=== PATIENT | female | born 1965 | race Caucasian/White ===

== ENCOUNTER 2017-08-17 23:12 | Emergency (ER) | payer OTHER ==
[~2017-08-17] VITALS: Ht 167.6 cm; Wt 100.7 kg
[~2017-08-17 23:12] MED LIST: LORTAB 5-325 M1 EACH PO; MOTRIN800 MG PO
[2017-08-18 00:06] LABS: APPEARANCE SL.HAZY ((CLEAR)); BILIRUBIN NEGATIVE; BLOOD LARGE; COLOR YELLOW ((YELLOW)); GLUCOSE (STRIP) NEGATIVE; KETONES NEGATIVE; LEUKOCYTES NEGATIVE; NITRITE NEGATIVE; PROTEIN (STRIP) 30; SPECIFIC GRAVITY 1.021 (1.000-1.030)
[2017-08-18 00:09] LABS: HEMATOCRIT 45.9 % (36.0-46.0); HEMOGLOBIN 15.3 G/DL (11.9-15.5); MCH 28.5 PG (29.0-34.0); MCHC 33.3 G/DL (30.0-36.0); MCV 85.6 FL (83-99); PLATELET COUNT 323 K/uL (156-360); RBC DIS.WIDTH-CV 13.1 % (11.8-14.6); RBC DIS.WIDTH-SD 40.2 % (39-53); RED BLOOD COUNT 5.36 M/uL (3.80-5.20); WHITE BLOOD COUNT 10.4 K/uL (4.1-10.2)
[2017-08-18 00:10] LABS: BACTERIA RARE /HPF; EPITHELIAL CELLS 2+ /HPF; HYALINE CASTS 0-5 /LPF; MUCUS 2+ /LPF; RED BLOOD CELLS TNTC /HPF (0-5); UCUL ADDED? YES; WHITE BLOOD CELLS 0-5 /HPF (0-5)
[2017-08-18 00:20] LABS: CHLORIDE 106 mEq/L (99-109); POTASSIUM 3.8 mEq/L (3.7-5.4); SODIUM 140 mEq/L (136-147)
[2017-08-18 00:22] LABS: GLUCOSE 122 mg/dL (70-99)
[2017-08-18 00:26] LABS: GFR ESTIMATE (CALCULATED) > 59 mL/min/
[2017-08-18 00:27] LABS: UREA NITROGEN (BUN) 17 mg/dL (9-23)
[2017-08-18] MEDS ORDERED: MOTRIN600 MG PO (05:35)
[2017-08-18 05:42] VITALS: BP 155/76
== END 2017-08-18 05:53 | disposition home or self-care (01) ==
LOC: EME 23:12
DX: N13.2 Hydronephrosis with renal and ureteral calculous obstruction (principal); Z88.0 Allergy status to penicillin
CPT/HCPCS: 74176; 80048; 81003; 85027; 87086; 99281; 99284

== ENCOUNTER 2017-11-20 03:26 | Emergency (ER) | payer SELFPAY ==
[~2017-11-20] VITALS: Ht 162.6 cm; Wt 101.0 kg
[~2017-11-20 03:26] MED LIST changes: +MOTRIN600 MG PO
[2017-11-20 04:32] LABS: BASOPHIL (%) 0.3 % (0-1); EOSINOPHIL (%) 3.3 % (0-5); EOSINOPHIL COUNT 0.2 K/uL (0-0.3); HEMATOCRIT 43.9 % (36.0-46.0); HEMOGLOBIN 14.9 G/DL (11.9-15.5); IMMATURE GRANULOCYTE (%) 0.3 % (0.0-0.7); LYMPHOCYTE (%) 29.3 % (15-42); LYMPHOCYTE COUNT 2.1 K/uL (1.0-2.8); MCH 28.9 PG (29.0-34.0); MCHC 33.9 G/DL (30.0-36.0); MCV 85.2 FL (83-99); MONOCYTE (%) 7.5 % (3-12); MONOCYTE COUNT 0.6 K/uL (0-0.8); NEUTROPHIL (%) 59.3 % (45-76); NEUTROPHIL COUNT 4.3 K/uL (1.8-6.4); PLATELET COUNT 255 K/uL (156-360); RBC DIS.WIDTH-CV 13.2 % (11.8-14.6); RBC DIS.WIDTH-SD 41.2 % (39-53); RED BLOOD COUNT 5.15 M/uL (3.80-5.20); WHITE BLOOD COUNT 7.3 K/uL (4.1-10.2)
[2017-11-20 04:46] LABS: CHLORIDE 110 mEq/L (99-109); POTASSIUM 3.9 mEq/L (3.7-5.4); SODIUM 143 mEq/L (136-147)
[2017-11-20 04:48] LABS: GLUCOSE 130 mg/dL (70-99)
[2017-11-20 04:52] LABS: CREATININE 1.4 mg/dL (0.6-1.3); GFR ESTIMATE (CALCULATED) 42 mL/min/; UREA NITROGEN (BUN) 17 mg/dL (9-23)
[2017-11-20 05:31] LABS: APPEARANCE SL.HAZY ((CLEAR)); BILIRUBIN NEGATIVE; BLOOD SMALL; COLOR YELLOW ((YELLOW)); GLUCOSE (STRIP) NEGATIVE; KETONES 5; LEUKOCYTES NEGATIVE; NITRITE NEGATIVE; PROTEIN (STRIP) 30; SPECIFIC GRAVITY 1.018 (1.000-1.030)
[2017-11-20 05:36] LABS: BACTERIA RARE /HPF; EPITHELIAL CELLS 1+ /HPF; MUCUS TRACE /LPF; UCUL ADDED? NO; WHITE BLOOD CELLS 0-5 /HPF (0-5)
[2017-11-20] MEDS ORDERED: FLOMAX0.4 MG PO (05:40)
[2017-11-20] MEDS ORDERED: ZOFRAN4 MG PO (05:40)
[2017-11-20] MEDS ORDERED: PERCOCET 5/31 TABLET PO (05:40)
[2017-11-20 06:46] VITALS: BP 135/84
== END 2017-11-20 06:47 | disposition home or self-care (01) ==
LOC: EXP 03:26 → EME 03:26 → EXP 06:47
PROVIDERS: Emergency Medicine
DX: N13.2 Hydronephrosis with renal and ureteral calculous obstruction (principal); N28.9 Disorder of kidney and ureter, unspecified; Z87.442 Personal history of urinary calculi; Z88.0 Allergy status to penicillin
CPT/HCPCS: 74176; 80048; 81003; 85025; 87086; 99281; 99285; J1885; J2405; J3010; J7030

== ENCOUNTER 2017-11-25 22:43 | Inpatient (IN) | payer SELFPAY ==
[~2017-11-25] VITALS: Ht 167.6 cm; Wt 99.3 kg
[~2017-11-25 22:43] MED LIST changes: +FLOMAX0.4 MG PO; +PERCOCET 5/31 TABLET PO; +ZOFRAN4 MG PO
[2017-11-25 23:22] LABS: HEMATOCRIT 45.3 % (36.0-46.0); HEMOGLOBIN 15.4 G/DL (11.9-15.5); MCH 29.4 PG (29.0-34.0); MCV 86.6 FL (83-99); RBC DIS.WIDTH-CV 13.2 % (11.8-14.6); RBC DIS.WIDTH-SD 41.1 % (39-53); RED BLOOD COUNT 5.23 M/uL (3.80-5.20); WHITE BLOOD COUNT 9.5 K/uL (4.1-10.2)
[2017-11-25 23:26] LABS: PLATELET COUNT 373 K/uL (156-360)
[2017-11-25 23:33] LABS: CHLORIDE 106 mEq/L (99-109)
[2017-11-25 23:34] LABS: POTASSIUM 3.5 mEq/L (3.7-5.4); SODIUM 146 mEq/L (136-147)
[2017-11-25 23:35] LABS: GLUCOSE 97 mg/dL (70-99)
[2017-11-25 23:39] LABS: CREATININE 1.2 mg/dL (0.6-1.3); GFR ESTIMATE (CALCULATED) 50 mL/min/
[2017-11-25 23:40] LABS: UREA NITROGEN (BUN) 14 mg/dL (9-23)
[2017-11-25 23:48] LABS: APPEARANCE SL.HAZY ((CLEAR)); BILIRUBIN NEGATIVE; BLOOD SMALL; COLOR YELLOW ((YELLOW)); GLUCOSE (STRIP) NEGATIVE; KETONES NEGATIVE; LEUKOCYTES NEGATIVE; NITRITE NEGATIVE; PROTEIN (STRIP) 30; SPECIFIC GRAVITY 1.026 (1.000-1.030)
[2017-11-26 00:05] LABS: BACTERIA 2+ /HPF; EPITHELIAL CELLS 2+ /HPF; MUCUS TRACE /LPF; RED BLOOD CELLS 0-5 /HPF (0-5); UCUL ADDED? YES; WHITE BLOOD CELLS 0-5 /HPF (0-5)
[2017-11-26 02:57] LABS: ALBUMIN 4.6 g/dL (3.2-4.8)
[2017-11-26 02:59] LABS: TOTAL PROTEIN 8.3 g/dL (6.4-8.3)
[2017-11-26 03:01] LABS: TOTAL BILIRUBIN 0.4 mg/dL (0.0-1.0)
[2017-11-26 03:02] LABS: ALKALINE PHOSPHATASE 95 IU/L (3-129)
[2017-11-26 03:05] LABS: ALT (GPT) 120 IU/L (3-49); AST (GOT) 105 IU/L (2-34); DIRECT BILIRUBIN 0.2 mg/dL (0.0-0.3)
[2017-11-26 03:06] LABS: LIPASE 35 U/L (1.0-51.0)
[2017-11-26 06:18] VITALS: BP 180/82
[2017-11-26 08:37] VITALS: BP 168/84
[2017-11-26] MEDS ORDERED: TYLENOL EXTRA500 MG PO (10:51)
[2017-11-26] MEDS ORDERED: ADVIL200 M3 PO (10:53)
[2017-11-26 12:00] VITALS: BP 130/62
[2017-11-26 15:58] VITALS: BP 164/92
[2017-11-26 19:45] VITALS: BP 145/90
[2017-11-27 00:54] VITALS: BP 141/86
[2017-11-27 04:40] VITALS: BP 136/84
[2017-11-27 06:25] LABS: HEMATOCRIT 39.7 % (36.0-46.0); MCH 29.1 PG (29.0-34.0); MCHC 33.5 G/DL (30.0-36.0); MCV 86.9 FL (83-99); RBC DIS.WIDTH-CV 13.2 % (11.8-14.6); RED BLOOD COUNT 4.57 M/uL (3.80-5.20); WHITE BLOOD COUNT 6.4 K/uL (4.1-10.2)
[2017-11-27 06:26] LABS: HEMOGLOBIN 13.3 G/DL (11.9-15.5); PLATELET COUNT 258 K/uL (156-360)
[2017-11-27 06:39] LABS: ALBUMIN 3.7 G/DL (3.2-4.8); ALKALINE PHOSPHATASE 67 IU/L (3-129); ALT (GPT) 59 IU/L (3-49); AST (GOT) 45 IU/L (2-34); CHLORIDE 107 MEQ/L (99-109); CREATININE 1.2 MG/DL (0.6-1.3); GFR ESTIMATE (CALCULATED) 50 mL/min/; GLUCOSE 93 mg/dL (70-99); POTASSIUM 3.9 MEQ/L (3.7-5.4); SODIUM 138 MEQ/L (136-147); TOTAL BILIRUBIN 0.4 MG/DL (0.0-1.0); TOTAL PROTEIN 6.4 G/DL (6.4-8.3); UREA NITROGEN (BUN) 11 mg/dL (9-23)
[2017-11-27 07:57] VITALS: BP 177/88
[2017-11-27 11:26] VITALS: BP 176/88
[2017-11-27 13:59] VITALS: BP 146/76
[2017-11-27 19:55] VITALS: BP 146/83
[2017-11-28 00:12] VITALS: BP 144/79
[2017-11-28 04:06] VITALS: BP 130/77
[2017-11-28 06:50] LABS: HEMATOCRIT 40.1 % (36.0-46.0); HEMOGLOBIN 13.4 G/DL (11.9-15.5); MCH 28.9 PG (29.0-34.0); MCHC 33.4 G/DL (30.0-36.0); MCV 86.4 FL (83-99); PLATELET COUNT 323 K/uL (156-360); RBC DIS.WIDTH-CV 13.2 % (11.8-14.6); RBC DIS.WIDTH-SD 40.8 % (39-53); RED BLOOD COUNT 4.64 M/uL (3.80-5.20); WHITE BLOOD COUNT 8.9 K/uL (4.1-10.2)
[2017-11-28 07:25] VITALS: BP 174/55
[2017-11-28 07:29] LABS: ALBUMIN 3.8 G/DL (3.2-4.8); ALKALINE PHOSPHATASE 78 IU/L (3-129); ALT (GPT) 55 IU/L (3-49); AST (GOT) 39 IU/L (2-34); CHLORIDE 108 MEQ/L (99-109); GFR ESTIMATE (CALCULATED) > 59 mL/min/; GLUCOSE 112 mg/dL (70-99); POTASSIUM 4.1 MEQ/L (3.7-5.4); SODIUM 141 MEQ/L (136-147); TOTAL BILIRUBIN 0.4 MG/DL (0.0-1.0); TOTAL PROTEIN 6.8 G/DL (6.4-8.3); UREA NITROGEN (BUN) 14 mg/dL (9-23)
[2017-11-28] MEDS ORDERED: TAMSULOSIN HCL0.4 MG PO (07:33)
[2017-11-28] MEDS ORDERED: BACTRIM,SEPT1 TABLET PO (07:36)
[2017-11-28 08:04] VITALS: BP 155/86
[2017-11-28 11:36] VITALS: BP 162/82
[2017-11-28 13:34] LABS: HEMATOCRIT 40.1 % (36.0-46.0); HEMOGLOBIN 13.4 G/DL (11.9-15.5); MCV 86.6 FL (83-99)
== END 2017-11-28 15:30 | disposition home or self-care (01) | DRG 669 ==
LOC: EME 22:43 → 2EASTP 11-26 04:46 → EDOF 11-26 04:46 → ENRESERV 11-26 04:48 → 2EASTP 11-26 06:15
PROVIDERS: Internal Medicine; Physician Assistant
DX: N13.2 Hydronephrosis with renal and ureteral calculous obstruction (principal); K76.0 Fatty (change of) liver, not elsewhere classified; I10 Essential (primary) hypertension; R42 Dizziness and giddiness; R74.0 Nonspecific elevation of levels of transaminase and lactic acid dehydrogenase [LDH]; E66.9 Obesity, unspecified; Z68.35 Body mass index [BMI] 35.0-35.9, adult; Z82.49 Family history of ischemic heart disease and other diseases of the circulatory system
CPT/HCPCS: 74018; 76000; 80048; 80053; 80076; 81003; 82365 90; 83690; 85014; 85018; 85027; 87086; 99281; 99285; C2625; J0696; J1644; J1885; J2250; J2270; J2405; J7030